=== PATIENT | male | born 1990 | race Caucasian/White ===

== ENCOUNTER 2016-07-19 14:53 | Emergency (ER) | payer OTHER ==
[~2016-07-19] VITALS: Ht 175.3 cm; Wt 95.3 kg
[~2016-07-19 14:53] MED LIST: EXCETAB80 PO
[2016-07-19] MEDS ORDERED: NORT25CA2 PO (15:06)
[2016-07-19] MEDS ORDERED: MAXA10TA14 PO (15:06)
[2016-07-19] MEDS ORDERED: NS 1,000 ML IV SCH (15:46)
[2016-07-19] MEDS ORDERED: KETOROLAC 30 MG/ML VIAL (J1885) IV ONE (16:00)
[2016-07-19] MEDS ORDERED: MORPHINE 2 MG/ML 1ML SYRINGE IV PRN (16:00)
[2016-07-19 16:27] LABS: BASO # 0.1 K/mm3 (0.0-0.2); BASO % 0.9 % (0.0-1.0); EOS # 0.1 K/mm3 (0.0-0.50); EOS % 1.1 % (0.0-3.0); LARGE UNSTAINED CELL # 0.1 K/mm3 (0.0-0.4); LARGE UNSTAINED CELL % 1.5 % (0.0-4.0); LYMPH # 1.3 K/mm3 (1.5-6.5); LYMPH % 18.1 % (24.0-44.0); MEAN CORPUSCULAR HEMOGLOBIN 29.9 pg (27.0-33.0); MEAN CORPUSCULAR HGB CONC 34.5 g/dl (32.0-36.5); MEAN CORPUSCULAR VOLUME 86.7 fl (80.0-96.0); MONO # 0.5 K/mm3 (0.0-0.8); MONO % 7.1 % (0.0-5.0); NEUTROPHILS # 5.2 K/mm3 (1.8-7.7); NEUTROPHILS % 71.3 % (36.0-66.0); PLATELET COUNT, AUTOMATED 203 k/mm3 (150-450); RED CELL DISTRIBUTION WIDTH 12.9 % (11.5-14.5); WHITE BLOOD COUNT 7.3 K/mm3 (4.0-10.0)
--- NOTE | 2016-07-19 16:46 | REP ---
CT ABDOMEN: HISTORY: Right renal colic. COMPARISON: None. FINDINGS: The lung bases are clear. Limited evaluation of the solid intraabdominal organs and gallbladder show no gross abnormalities. Limited evaluation of the pancreas and adrenal glands show no gross abnormalities. There are bilateral multiple nephroliths. In the proximal right ureter, there is an oval shaped 6 mm size calcification causing mild hydronephrosis. There are no left-sided ureteroliths. There are no urinary bladder calcifications. There is no free fluid or free air seen in the abdomen or pelvis. Limited evaluation of the bowel loops and the mesenteries show no gross abnormalities. Limited evaluation of the abdominal aorta and periaortic regions show no gross abnormalities. Bone window technique throughout the examination shows the osseous structures to be within normal limits. IMPRESSION: There are multiple bilateral nephroliths and there is a 6 mm size proximal right ureterolith with resultant findings as described above. Signed by aZchary Bentley DO 07/20/2016 09:05 A
[2016-07-19 16:52] LABS: ALBUMIN 4.2 GM/DL (3.2-5.2); ALBUMIN/GLOBULIN RATIO 1.24 (1.00-1.93); ALKALINE PHOSPHATASE 94 U/L (45-117); ALT/SGPT 25 U/L (12-78); ANION GAP 5 MEQ/L (8-16); AST/SGOT 12 U/L (15-37); BILIRUBIN,DIRECT < 0.1 MG/DL (0.0-0.2); BILIRUBIN,TOTAL 0.2 MG/DL (0.2-1.0); BLOOD UREA NITROGEN 14 MG/DL (7-18); CALCIUM LEVEL 9.1 MG/DL (8.5-10.1); CARBON DIOXIDE LEVEL 28 MEQ/L (21-32); CHLORIDE LEVEL 107 MEQ/L (98-107); CREATININE FOR GFR 0.99 MG/DL (0.70-1.30); GLOMERULAR FILTRATION RATE > 60.0 (>60); GLUCOSE, FASTING 104 MG/DL (70-105); SODIUM LEVEL 140 MEQ/L (136-145); TOTAL PROTEIN 7.6 GM/DL (6.4-8.2)
[2016-07-19] MEDS ORDERED: ONDANSETRON 4MG/2ML VIAL (J2405) IV ONE (17:00)
[2016-07-19] MEDS ORDERED: ZOFR4TAB3 PO (17:06)
[2016-07-19] MEDS ORDERED: FLOM5CAP PO (17:06)
[2016-07-19] MEDS ORDERED: HYDR-3713 PO (17:06)
[2016-07-19 17:15] VITALS: BP 145/96
== END 2016-07-19 17:25 | disposition home or self-care (01) ==
LOC: M ED 15:43
DX: N20.1 Calculus of ureter (principal); N23 Unspecified renal colic; R11.2 Nausea with vomiting, unspecified; G47.33 Obstructive sleep apnea (adult) (pediatric); F17.200 Nicotine dependence, unspecified, uncomplicated; Z79.899 Other long term (current) drug therapy; Z91.041 Radiographic dye allergy status; Z88.5 Allergy status to narcotic agent; Z88.8 Allergy status to other drugs, medicaments and biological substances
CPT/HCPCS: 74176; 80048; 80076; 83690; 85025; 96374; 96375; 99283; J1885; J2405

== ENCOUNTER → 2016-08-09 | Day surgery (SDC) | payer OTHER ==
[~2016-08-09] VITALS: Ht 175.3 cm; Wt 95.3 kg
[~2016-08-09] MED LIST changes: +CONRAY-60 60% 50ML VIAL (Q9961) As Ordered ONE; +FLOM5CAP PO; +HYDR-3713 PO; +HYDROmorphone HCL 2 MG/ML 1ML VIAL (J1170) As Ordered ONE; +KETOROLAC 30 MG/ML VIAL (J1885) IV ONE; +LIDOCAINE 2% INJ 100 MG/5 ML SDV (FOR ANES.) As Ordered ONE; +LR 1,000 ML IV ONE; +LR 1,000 ML IV SCH; +MAXA10TA14 PO; +METOCLOPRAMIDE INJ 10MG/2ML VIAL (J2765) As Ordered ONE; +MIDAZOLAM INJ 2 MG/2 ML VIAL (J2250) As Ordered ONE; +NORCO, ANEXSIA 5/325MG TABLET (HYDROcodone/ACETAMINOPHEN) PO PRN; +NORT25CA2 PO; +ONDANSETRON 4MG/2ML VIAL (J2405) As Ordered ONE; +ONDANSETRON 4MG/2ML VIAL (J2405) IV PRN; +PROPOFOL 200 MG/20 ML VIAL As Ordered ONE; +ZOFR4TAB3 PO; +dexameTHASONE 4 MG/ML 1ML VIAL (J1100) As Ordered ONE; +fentaNYL 100 MCG/2 ML INJECTION (J3010) As Ordered ONE; +fentaNYL 100 MCG/2 ML INJECTION (J3010) IV PRN; +oxyBUTYnin 5 MG TAB PO PRN
--- NOTE | 2016-08-09 12:45 | REP ---
29 seconds of fluoroscopy was provided to Dr. Figueroa for a double J stent catheter placement on the right. A double J stent catheter was seen on the right, the proximal portion of which is in the region of the renal pelvis and the distal portion of which is in the region of t he urinary bladder. Signed by Zachary Bentley DO 08/09/2016 01:47 P
[2016-08-09 14:45] VITALS: BP 136/48
--- NOTE | 2016-08-10 13:19 | RO ---
DATE OF PROCEDURE: 08/09/2016 PREPROCEDURE DIAGNOSIS: Right kidney and ureteral stones. POSTPROCEDURE DIAGNOSIS: Right kidney and ureteral stones. PROCEDURE: Cystoscopy, right ureteroscopy with laser lithotripsy and basket extraction of stones, right retrograde pyelogram with intraoperative interpretation of images, right ureteral stent placement. SURGEON: Dr. aCsey Figueroa ACCESS REGISTRAR: None. ANESTHESIA: General. OPERATIVE INDICATIONS: This is a 26-year-old male who was found to have an obstructing 6-7 mm size mid right ureteral stone as well as additional stones inside of his right kidney. He was brought to the operating room today for treatment. DESCRIPTION OF PROCEDURE: The patient was brought to the operating room and general anesthesia was induced. Prophylactic antibiotics were infused. He was placed in dorsal lithotomy position, prepped and draped in the usual sterile fashion. A rigid cystoscope was then inserted into the urethral meatus and advanced into the bladder. Once within the bladder, a wire was advanced up the right collecting system. Over this wire, a ureteral access sheath was advanced up into the right collecting system. The stylet was then removed and the wire was secured to the drape to serve as a safety wire. Flexible ureteroscope was then advanced up the access sheath and within the mid ureter, the 7-8 mm size stone was seen. This stone was then fragmented into smaller pieces using a 200 Micron laser fiber. All of these fragments were then removed using a basket. I then went into the kidney and examined the kidney thoroughly and there were a few additional stones in the kidney, the largest ones measuring 3-4 mm in size. All of these stones were grasped with the basket and removed as well. Once done, all the stones were gone. A retrograde pyelogram was performed and notable for mild right hydronephrosis with no extravasation. At the point, the ureteroscope was removed along with ureteral access sheath. No additional stones were seen behind the access sheath. Once the access sheath was removed, the previously placed wire was utilized to advance a #6-[place] x 22-32 cm JJ ureteral stent up to the right collecting system. The wire was then removed and there were adequate curl to the stent in the right renal pelvis and in the bladder. The bladder was emptied of all fluid. This marked the conclusion of the procedure. The patient was taken out of dorsal lithotomy position, awakened from anesthesia and transported to the recovery room in stable condition. ESTIMATED BLOOD LOSS: 0 mL. COMPLICATIONS: None. SPECIMENS: Kidney stone fragments. PLAN: The patient will followup in the clinic in a few weeks for stent removal.
== END ==
LOC: M SDC 09:54
PROVIDERS: ATTEND Urology
DX: N20.2 Calculus of kidney with calculus of ureter (principal); G47.30 Sleep apnea, unspecified; G43.909 Migraine, unspecified, not intractable, without status migrainosus; Z79.899 Other long term (current) drug therapy; Z88.5 Allergy status to narcotic agent; Z88.6 Allergy status to analgesic agent; Z91.041 Radiographic dye allergy status; F17.210 Nicotine dependence, cigarettes, uncomplicated
CPT/HCPCS: 52356; 74420; 82360; 88300; C1726; C1894; C2617; J0690; J1100; J1170; J1885; J2250; J2405; J2765; J3010; Q9961